=== PATIENT | male | born 1955 | race Caucasian/White ===

== ENCOUNTER 2021-04-24 00:50 | Emergency (ER) | payer MEDICARE, OTHER | END 2021-04-24 10:05 | disposition home or self-care (01) | LOC: ER1 00:50 | DX: M25.552 Pain in left hip (principal); M25.511 Pain in right shoulder; I11.9 Hypertensive heart disease without heart failure; I25.2 Old myocardial infarction; J44.9 Chronic obstructive pulmonary disease, unspecified; F17.210 Nicotine dependence, cigarettes, uncomplicated; Z88.2 Allergy status to sulfonamides; Z88.0 Allergy status to penicillin; W01.0XXA Fall on same level from slipping, tripping and stumbling without subsequent striking against object, initial encounter; Y92.009 Unspecified place in unspecified non-institutional (private) residence as the place of occurrence of the external cause | CPT/HCPCS: 72192; 73030; 73502; 99284 ==

== ENCOUNTER 2021-09-02 20:57 | Emergency (ER) | payer MEDICARE, OTHER ==
[2021-09-02 22:04] LABS: HEMOGLOBIN 9.9 gm/dl (14.0-17.5); RED BLOOD COUNT 4.37 M/UL (4.20-5.50); WHITE BLOOD COUNT 11.8 K/UL (4.5-11.0)
[2021-09-02 22:49] LABS: BUN/CREATININE RATIO 24 (0-10)
== END 2021-09-03 00:24 | disposition home or self-care (01) ==
LOC: ER1 20:57
PROVIDERS: Emergency Medicine
DX: R55 Syncope and collapse (principal); W19.XXXA Unspecified fall, initial encounter
CPT/HCPCS: 70450; 71045; 72125; 72128; 72131; 80053; 82550; 82553; 83874; 84484; 85025; 93005; 99284

== ENCOUNTER 2022-04-10 20:06 | Emergency (ER) | payer MEDICARE, OTHER ==
[2022-04-10 20:35] LABS: HEMOGLOBIN 12.1 gm/dl (14.0-17.5); RED BLOOD COUNT 4.85 M/UL (4.20-5.50); WHITE BLOOD COUNT 5.2 K/UL (4.5-11.0)
[2022-04-10 20:50] LABS: BUN/CREATININE RATIO 25 (0-10)
== END 2022-04-11 00:24 | disposition home or self-care (01) ==
LOC: ER1 20:06
PROVIDERS: Physician Assistant
DX: K92.2 Gastrointestinal hemorrhage, unspecified (principal); K21.9 Gastro-esophageal reflux disease without esophagitis; I48.91 Unspecified atrial fibrillation; I25.2 Old myocardial infarction; J44.9 Chronic obstructive pulmonary disease, unspecified; Z88.0 Allergy status to penicillin; Z88.1 Allergy status to other antibiotic agents; Z51.81 Encounter for therapeutic drug level monitoring
CPT/HCPCS: 80053; 82272; 83690; 85025; 85610; 85730; 86850; 86900; 86901; 99285; Q9967